=== PATIENT | female | born 1965 | race Caucasian/White ===

== ENCOUNTER → 2018-04-29 | Day surgery (SDC) | payer OTHER ==
[2018-04-23 15:35] LABS: BASOPHILS % 0.6 % (0.0-1.0); EOSINOPHILS # (AUTO) 0.1 (0.0-0.4); EOSINOPHILS % 1.9 % (0.0-6.0); HEMATOCRIT 41.9 % (34.2-44.1); HEMOGLOBIN 14.4 g/dL (12.0-16.0); LYMPHOCYTES # (AUTO) 2.6 (1.0-3.2); LYMPHOCYTES % 47.3 % (18.0-39.1); MEAN CORPUSCULAR HEMOGLOBIN 29.7 pg (28-32); MEAN CORPUSCULAR HGB CONC 34.4 g/dL (31-35); MEAN CORPUSCULAR VOLUME 86.4 fL (81-99); MONOCYTES # (AUTO) 0.4 (0.2-0.8); MONOCYTES % 6.7 % (4.4-11.3); NEUTROPHILS # (AUTO) 2.3 (2.1-6.9); NEUTROPHILS % 43.3 % (38.7-80.0); PLATELET COUNT 278 x10e3/uL (140-360); RED BLOOD COUNT 4.85 x10e6/uL (3.6-5.1); RED CELL DISTRIBUTION WIDTH 14.1 % (11.7-14.4)
[2018-04-23 15:55] LABS: BLOOD UREA NITROGEN 13 mg/dL (7-26); BUN/CREATININE RATIO 18 (6-25); CALCIUM 9.7 mg/dL (8.4-10.2); CARBON DIOXIDE 26 mmol/L (22-29); CHLORIDE 104 mmol/L (98-107); CREATININE, SERUM 0.71 mg/dL (0.57-1.11); EST GLOMERULAR FILTRATION RATE > 60 ML/MIN (60-); GLUCOSE 92 mg/dL (74-118); SODIUM 138 mmol/L (136-145)
--- NOTE | 2018-04-23 16:29 | Diagnostic Imaging Report ---
EXAMINATION: CHEST 2 VIEWS INDICATION: ^PRE ADMIT ^[id number] ^[id number] COMPARISON: None FINDINGS: PA and lateral views TUBES and LINES: None. LUNGS: Lungs are well inflated. Lungs are clear. There is no evidence of pneumonia or pulmonary edema. PLEURA: No pleural effusion or pneumothorax. HEART AND MEDIASTINUM: The cardiomediastinal silhouette is unremarkable. BONES AND SOFT TISSUES: No acute osseous lesion. Soft tissues are unremarkable. UPPER ABDOMEN: No free air under the diaphragm. IMPRESSION: No acute thoracic abnormality. Signed by: Dr. Guy Rolon MD on 04/23/2018 4:26 PM
[~2018-04-29] MED LIST: BETAMETHASONE DISODIUM PHOS 6 MG/ML VIAL ONE; BUPIVACAINE HCL 0.5% INJ 30 ML VIAL INJ ONE; CEFAZOLIN SOD 2 GM/D5W 50ML 50 ML IV ONE; DEXAMETHASONE SOD PHOS INJ 4 MG/ML VIAL ONE; FENTANYL CITRATE/PF 100MCG/2 ML INJ ONE; KEFLEX PO; KETOROLAC TROMETHAMINE 30 MG/ML VIAL ONE; LIDOCAINE HCL 1% LOCAL INJ 20 ML VIAL ONE; LIDOCAINE HCL 2% LOCAL INJ 5 ML SDV VIAL INJ ONE; MIDAZOLAM HCL 2 MG/2 ML VIAL ONE; MONTELUKAST SOD10 MG PO; MORPHINE SULFATE 2 MG/ML SYR ONE; MUPIROCIN 2% OINT 22 GM TUBE ONE; ONDANSETRON HCL INJ 2 MG/ML VIAL ONE; PROPOFOL IV EMULSION 10 MG/ML 20 ML VIAL ONE; SEVOFLURANE INHAL SOLN 250 ML PEN BTL ONE
--- OUTSIDE RECORDS SUMMARY | 2018-04-29 06:00 | XMS REPORT | Continuity of Care Document ---
Author Author [facility] Interface Address Unknown Phone Unavailable Problems Problem Status Onset Date Classification Date Reported Comments Source DR TAMAYO Active 06/05/2016 [facility] TIA Active 06/05/2016 [facility] Asthma Resolved Problem 06/09/2016 [facility] TRANSIENT CEREBRAL ISCHEMIC ATTACK, UNSP Active [facility] Medications Medication Details Route Status Patient Instructions Ordering Provider Order Date Source Lipitor 80 mg, 2 tab, Route: PO, Drug form: TAB, Bedtime, Dosing Weight 63.636, kg, Start date: 06/06/16 21:00:00 [employer], Duration: 30 day, Stop date: 07/05/16 21:00:00 CSTNotes: (Same as: Lipitor) Inactive 06/07/2016 [facility] atorvastatin 40 mg oral tablet 80 mg=2 tab, PO, Bedtime, # 30 tab, 0 Refill(s) Active 06/06/2016 [facility] dipyridamole 25 mg oral tablet 50 mg=2 tab, PO, Daily, # 30 tab, 0 Refill(s) Active 06/06/2016 [facility] Persantine 50 mg, 2 tab, Route: PO, Drug form: TAB, Daily, Dosing Weight 81.818, kg, Start date: 06/06/16 9:04:00 [employer], Duration: 30 day, Stop date: 07/06/16 9:00:00 [employer] Inactive 06/06/2016 [facility] Pentoxifylline 400 mg, 1 tab, Route: PO, Drug form: ERTAB, TID, Dosing Weight 81.818, kg, Start date: 06/06/16 9:03:00 [employer], Duration: 30 day, Stop date: 07/06/16 9:00:00 [employer] Inactive 06/06/2016 [facility] Aspirin 325 mg, 1 tab, Route: PO, Drug form: TAB, Daily, Dosing Weight 63.636, kg, Start date: 06/06/16 9:00:00 [employer], Duration: 30 day, Stop date: 07/05/16 9:00:00 CSTNotes: Take with food. Inactive 06/06/2016 [facility] pneumococcal capsular polysaccharide type 1 vaccine / pneumococcal capsular polysaccharide type 10A vaccine / pneumococcal capsular polysaccharide type 11A vaccine / pneumococcal capsular polysaccharide type 12F vaccine / pneumococcal capsular polysacchar 0.5 mL, Route: IM, Drug Form: INJ, Daily, Start date: 06/06/16 9:00:00 [employer], Stop date: 06/06/16 11:00:00 CSTNotes: (Same as: Pneumovax 23) Refrigerate Inactive 06/06/2016 [facility] Saline Flush 0.9% 10 ml, Route: IVP, Drug Form: INJ, Dosing Weight 81.818, kg, Q12H, Start date: 06/06/16 9:00:00 [employer], Duration: 30 day, Stop date: 07/05/16 21:00:00 CSTNotes: (Same as: BD Posiflush) Inactive 06/06/2016 [facility] Famotidine 20 mg, 1 tab, Route: PO, Drug form: TAB, Q12H, Dosing Weight 81.818, kg, Start date: 06/06/16 9:00:00 [employer], Duration: 30 day, Stop date: 07/05/16 21:00:00 CSTNotes: (Same as: Pepcid) Inactive 06/06/2016 [facility] nitroglycerin 0.4 mg sublingual tablet 0.4 mg, 1 tab, Route: SL, Drug form: TAB, Q5Min, PRN Chest Pain, Start date: 06/06/16 4:04:00 [employer], Duration: 30 day, Stop date: 07/06/16 4:03:00 CSTNotes: (Same as:Nitroquick, Nitrostat) "Do Not Crush" Sublingual tablet Inactive 06/06/2016 [facility] atropine 0.5 mg, 5 mL, Route: IVP, Drug form: INJ, PRN, PRN Bradycardia, Start date: 06/06/16 4:04:00 [employer], Duration: 30 day, Stop date: 07/06/16 4:03:00 [employer] Inactive 06/06/2016 [facility] montelukast Daily, 0 Refill(s) Active 06/06/2016 [facility] Saline Flush 0.9% 10 ml, Route: IVP, Drug Form: INJ, Dosing Weight 81.818, kg, PRN, PRN Line Flush, Start date: 06/06/16 2:38:00 [employer], Duration: 30 day, Stop date: 07/06/16 2:37:00 CSTNotes: (Same as: BD Posiflush) Inactive 06/06/2016 [facility] Acetaminophen 650 mg, 2 tab, Route: PO, Drug form: TAB, Q4H, Dosing Weight 81.818, kg, PRN Pain 1-3/Temp > 99.5 F, Start date: 06/06/16 2:38:00 [employer], Duration: 30 day, Stop date: 07/06/16 2:37:00 CSTNotes: Do not e xceed 4 gm/day. (Same as: Tylenol) Inactive 06/06/2016 [facility] Atenolol 25 MG Oral Tablet 25 mg=1 tab, PO, Daily, 0.5 mg in am and pm, 0 Refill(s) Inactive 06/06/2016 [facility] Sodium Chloride 0.154 MEQ/ML Injectable Solution 1,000 mL, Rate: 75 ml/hr, Infuse over: 13.3 hr, Route: IV, Dosing Weight 63.636 kg, Total Volume: 1,000, Start date: 06/05/16 22:46:00 [employer], Duration: 30 day, Stop date: 07/05/16 22:45:00 [employer] No Longer Active 06/06/2016 [facility] Saline Flush 0.9% 10 ml, Route: IVP, Drug Form: INJ, Dosing Weight 63.636, kg, PRN, PRN Line Flush, Start date: 06/05/16 22:46:00 [employer], Duration: 30 day, Stop date: 07/05/16 22:45:00 [employer] Inactive 06/06/2016 [facility] Ondansetron 4 mg, 2 mL, Route: IVP, Drug form: INJ, Q6H, Dosing Weight 63.636, kg, PRN Nausea & Vomiting, Start date: 06/05/16 22:46:00 [employer], Duration: 30 day, Stop date: 07/05/16 22:45:00 CSTNotes: (Same as: Zofran) MEDICATION WASTE Product Size: 4 mg Product Wasted: ___ mg No Longer Active 06/06/2016 [facility] Aspirin 324 mg, 4 tab, Route: CHEW, Drug form: CHEWTAB, ONCE, Dosing Weight 63.636, kg, Priority: STAT, Start date: 06/05/16 21:24:00 [employer], Stop date: 06/05/16 21:24:00 CSTNotes: Take with food. Inactive 06/06/2016 [facility] Saline Flush 0.9% 10 mL, Route: IVP, Drug Form: INJ, kg, PRN, PRN Line Flush, Start date: 06/05/16 17:03:00 [employer], Duration: 30 day, Stop date: 07/05/16 17:02:00 CSTNotes: (Same as: BD Posiflush) No Longer Active 06/05/2016 [facility] Allergies, Adverse Reactions, Alerts Substance Category Reaction Severity Reaction type Status Date Reported Comments Source Immunizations Immunization Date Given Site Status Last Updated Comments Source pneumococcal 23-valent vaccine 06/06/2016 Left deltoid completed [facility] Results Order Name Results Value Reference Range Date Interpretation Comments Source CARDIAC ENZYMES Troponin-I null 0.00 - 0.40 06/06/2016 [facility] CHEM PANEL eGFR 102 mL/min/1.73m2 06/06/2016 Result Comment: The eGFR is calculated using the CKD-EPI formula. In most young, healthy individuals the eGFR will be >90 mL/min/1.73m2. The eGFR declines with age. An eGFR of 60-89 may be normal in some populations, particularly the elderly, for whom the CKD-EPI formula has not been extensively validated. Use of the eGFR is not recommended in the following populations: Individuals with unstable creatinine concentrations, including patients and those with serious co-morbid conditions. Patients with extremes in muscle mass or diet. The data above are obtained from the National Kidney Disease Education Program (NKDEP) which additionally recommends that when the eGFR is used in patients with extremes of body mass index for purposes of drug dosing, the eGFR should be multiplied by the estimated BMI. [facility] CHEM PANEL BUN 18 mg/dL 7 - 22 06/06/2016 [facility] CHEM PANEL AGAP 13.9 meq/L 10.0 - 20.0 06/06/2016 [facility] CHEM PANEL CO2 23 meq/L 24 - 32 06/06/2016 [facility] CHEM PANEL Glucose Lvl 90 mg/dL 70 - 99 06/06/2016 [facility] CHEM PANEL Creatinine Lvl 0.65 mg/dL 0.50 - 1.40 06/06/2016 [facility] CHEM PANEL Chloride Lvl 110 meq/L 95 - 109 06/06/2016 [facility] CHEM PANEL AST 23 unit/L 0 - 37 06/06/2016 [facility] CHEM PANEL Bili Total 0.3 mg/dL 0.2 - 1.3 06/06/2016 [facility] CHEM PANEL Alk Phos 83 unit/L 39 - 136 06/06/2016 [facility] CHEM PANEL Total Protein 6.4 g/dL 6.4 - 8.4 06/06/2016 [facility] CHEM PANEL B/C Ratio 28 6 - 25 06/06/2016 [facility] CHEM PANEL Calcium Lvl 8.5 mg/dL 8.5 - 10.5 06/06/2016 [facility] CHEM PANEL Albumin Lvl 3.4 g/dL 3.5 - 5.0 06/06/2016 [facility] CHEM PANEL ALT 34 unit/L 0 - 65 06/06/2016 [facility] CHEM PANEL A/G Ratio 1.1 0.7 - 1.6 06/06/2016 [facility] CHEM PANEL Globulin 3.0 g/dL 2.7 - 4.2 06/06/2016 [facility] CHEM PANEL Potassium Lvl 3.9 meq/L 3.5 - 5.1 06/06/2016 [facility] CHEM PANEL Sodium Lvl 143 meq/L 135 - 145 06/06/2016 [facility] HEMATOLOGY WBC 5.2 K/CMM 3.7 - 10.4 06/06/2016 [facility] HEMATOLOGY Hgb 13.9 g/dL 12.0 - 16.0 06/06/2016 [facility] HEMATOLOGY RBC 4.76 M/CMM 4.20 - 5.40 06/06/2016 [facility] HEMATOLOGY Hct 40.6 % 36.0 - 48.0 06/06/2016 [facility] HEMATOLOGY MCV 85.4 fL 80.0 - 98.0 06/06/2016 [facility] HEMATOLOGY MCH 29.2 pg 27.0 - 31.0 06/06/2016 [facility] MCHC 34.1 g/dL 32.0 - 36.0 06/06/2016 [facility] HEMATOLOGY RDW 14.4 % 11.5 - 14.5 06/06/2016 [facility] HEMATOLOGY Platelet 241 K/CMM 133 - 450 06/06/2016 [facility] MPV 8.2 fL 7.4 - 10.4 06/06/2016 [facility] HEMATOLOGY Segs-Bands # 2.1 K/CMM 1.5 - 8.1 06/06/2016 [facility] HEMATOLOGY Basophils 0.7 % 0.0 - 1.0 06/06/2016 [facility] HEMATOLOGY Lymphocytes # 2.5 K/CMM 1.0 - 5.5 06/06/2016 [facility] HEMATOLOGY Monocytes # 0.4 K/CMM 0.0 - 0.8 06/06/2016 [facility] Eosinophils # 0.1 K/CMM 0.0 - 0.5 06/06/2016 [facility] HEMATOLOGY Segs 40.6 % 45.0 - 75.0 06/06/2016 [facility] Lymphocytes 48.5 % 20.0 - 40.0 06/06/2016 [facility] Monocytes 7.9 % 2.0 - 12.0 06/06/2016 [facility] Eosinophils 2.3 % 0.0 - 4.0 06/06/2016 [facility] LIPIDS Chol 164 mg/dL <=199 mg/dL 06/06/2016 [facility] LIPIDS Trig 138 mg/dL <=149 mg/dL 06/06/2016 [facility] LIPIDS VLDL 28 06/06/2016 [facility] LIPIDS LDL (Calculated) 89 mg/dL <=99 mg/dL 06/06/2016 [facility] LIPIDS HDL 47 mg/dL >=61 mg/dL 06/06/2016 [facility] LIPIDS CHD Risk 3.49 3.90 - 5.80 06/06/2016 [facility] SPECIAL CHEMISTRY Hgb A1C 5.5 % <=5.6 % 06/06/2016 [facility] Carotid artery Doppler bilat US Carotid artery Doppler bilat US Carotid artery Doppler bilat US CLINICAL HISTORY: Acute Cerebral Accident. COMPARISON: none TECHNIQUE: Clemente scale, color Doppler and spectral Doppler of the cervical carotid arteries was performed. Static images are submitted for review. FINDINGS: RIGHT: There is no significant intimal thickening or plaque visualized in right CCA. Visualized portion of right ECA is patent. No significant plaque is visualized in the right carotid bulb. Visualized portion of the right ICA is patent without significant plaque. Right ICA PSV 91 cm/sec. Right CCA PSV 90 cm/sec. Right ICA/CCA Ratio 1.0 LEFT: There is no significant intimal thickening or plaque visualized in left CCA. Visualized portion of left ECA is patent. No significant plaque is visualized in the left carotid bulb. Visualized portion of the left ICA is patent without significant plaque. Left ICA PSV 104 cm/sec. Left CCA PSV 112 cm/sec. Left ICA/CCA Ratio 0.9 Antegrade flow is noted in both vertebral arteries. IMPRESSION: No sonographic evidence for hemodynamically significant stenosis. CONSENSUS PANEL Doppler US criteria for diagnosis of ICA stenosis: Stenosis (%) ICA PSV (cm/sec) ICA EDV(cm/sec) ICA/CCA ratio <50 % <125 <40 <2.0 50-69 % 125-230 40-100 2.0-4.0 >70% but less than >230 >100 >4.0 near occlusion NOTE: Any reported ICA stenoses indirectly reference the distal internal carotid diameter as the denominator for stenosis measurement utilizing Consensus Panel Criteria. SL: [id number] Doppler 06/06/2016 - - Read by: Juancarlos Macdonald MD Dictated Date/time: 06/06/16 11:52 Electronically Signed by: Juancarlos Macdonald MD 06/06/16 12:21 FINAL REPORT [facility] CARDIAC ENZYMES Troponin-I null 0.00 - 0.40 06/06/2016 [facility] Brain wo contrast MRI Brain wo contrast MRI Study: Brain wo contrast MRI 06/05/2016 10:39 PM [employer]IST Ordering Physician: Oly Barba MD Clinical Indication: Blurry vision; slurred speech. Comparison: None Magnetic resonance imaging of the brain without contrast TECHNIQUE: Multiplanar, multiecho magnetic resonance imaging of the brain is performed without contrast on a high-field strength magnet. No foci of abnormal signal intensity are identified within the cerebral or cerebellar hemispheres. There is no evidence for intracranial mass, mass effect or extra-axial fluid collection. No subacute or chronic blood products are seen. 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 These form a conglomerate measuring approximately 10 mm AP by 8 mm TR by 5 mm CC. No solid or nodular components are visualized. There is no evidence for acute ischemia on diffusion-weighted images. Ventricles, sulci and basal cisterns are within normal limits for age. Normal flow voids are present in the arterial vessels at the skull base. Flow voids in the dural venous sinuses are normal. The pituitary, internal auditory canals and visualized cranial nerves at the skull base are unremarkable. Paranasal sinuses are clear. Minimal inferior left mastoid air cell opacification is present.. Orbital structures are grossly unremarkable. IMPRESSION: There is minimal inferior left mastoid air cell opacification. MRI of the brain without contrast is otherwise unremarkable. SL: [id number] 06/06/2016 - - Read by: Patrica Alberto MD Dictated Date/time: 06/06/16 01:17 Electronically Signed by: Patrica Alberto MD 06/06/16 01:28 FINAL REPORT [facility] URINE AND STOOL UA Color Ltyellow 06/06/2016 [facility] URINE AND STOOL UA Urobilinogen <=1.0 mg/dL 0.1 - 1.0 06/06/2016 [facility] URINE AND STOOL UA Mucus Few /LPF None Seen /LPF 06/06/2016 [facility] URINE AND STOOL UA Renal Epi 1 /LPF <=0 /LPF 06/06/2016 [facility] URINE AND STOOL UA WBC 1 /HPF 0 - 5 06/06/2016 [facility] URINE AND STOOL UA RBC 1 /HPF 0 - 2 06/06/2016 [facility] URINE AND STOOL UA Sq Epi Few /LPF Few /LPF 06/06/2016 [facility] URINE AND STOOL UA Leuk Est Moderate *ABN* (06/05/16 6:26 PM) Negative 06/06/2016 [facility] URINE AND STOOL UA Blood Negative (06/05/16 6:26 PM) Negative 06/06/2016 [facility] URINE AND STOOL UA Nitrite Negative (06/05/16 6:26 PM) Negative 06/06/2016 [facility] URINE AND STOOL UA Ketones Negative mg/dL Negative mg/dL 06/06/2016 [facility] URINE AND STOOL UA Glucose Negative mg/dL Negative mg/dL 06/06/2016 [facility] URINE AND STOOL UA Bili Negative *NA* (06/05/16 6:26 PM) Negative 06/06/2016 [facility] URINE AND STOOL UA pH 6.0 5.0 - 8.0 06/06/2016 [facility] URINE AND STOOL UA Protein Negative mg/dL Negative mg/dL 06/06/2016 [facility] URINE AND STOOL UA Turbidity Clear (06/05/16 6:26 PM) Clear 06/06/2016 [facility] URINE AND STOOL UA Spec Grav 1.013 <=1.030 06/06/2016 [facility] CARDIAC ENZYMES Total CK 56 unit/L 12 - 191 06/05/2016 [facility] CARDIAC ENZYMES Troponin-I null 0.00 - 0.40 06/05/2016 [facility] CARDIAC ENZYMES CK MB null 0.5 - 3.6 06/05/2016 [facility] CARDIAC ENZYMES CK MB Index null 0.0 - 2.5 06/05/2016 [facility] CHEM PANEL eGFR 93 mL/min/1.73m2 06/05/2016 Result Comment: The eGFR is calculated using the CKD-EPI formula. In most young, healthy individuals the eGFR will be >90 mL/min/1.73m2. The eGFR declines with age. An eGFR of 60-89 may be normal in some populations, particularly the elderly, for whom the CKD-EPI formula has not been extensively validated. Use of the eGFR is not recommended in the following populations: Individuals with unstable creatinine concentrations, including patients and those with serious co-morbid conditions. Patients with extremes in muscle mass or diet. The data above are obtained from the National Kidney Disease Education Program (NKDEP) which additionally recommends that when the eGFR is used in patients with extremes of body mass index for purposes of drug dosing, the eGFR should be multiplied by the estimated BMI. [facility] CHEM PANEL B/C Ratio 16 6 - 25 06/05/2016 [facility] CHEM PANEL Globulin 3.5 g/dL 2.7 - 4.2 06/05/2016 [facility] CHEM PANEL A/G Ratio 1.0 0.7 - 1.6 06/05/2016 [facility] CHEM PANEL Alk Phos 91 unit/L 39 - 136 06/05/2016 [facility] CHEM PANEL ALT 37 unit/L 0 - 65 06/05/2016 [facility] CHEM PANEL Bili Total 0.3 mg/dL 0.2 - 1.3 06/05/2016 [facility] CHEM PANEL AST 21 unit/L 0 - 37 06/05/2016 [facility] CHEM PANEL AGAP 15.2 meq/L 10.0 - 20.0 06/05/2016 [facility] CHEM PANEL Potassium Lvl 4.2 meq/L 3.5 - 5.1 06/05/2016 [facility] CHEM PANEL BUN 12 mg/dL 7 - 22 06/05/2016 [facility] CHEM PANEL Sodium Lvl 143 meq/L 135 - 145 06/05/2016 [facility] CHEM PANEL Glucose Lvl 131 mg/dL 70 - 99 06/05/2016 [facility] CHEM PANEL Creatinine Lvl 0.74 mg/dL 0.50 - 1.40 06/05/2016 [facility] CHEM PANEL Total Protein 7.1 g/dL 6.4 - 8.4 06/05/2016 [facility] CHEM PANEL Calcium Lvl 8.8 mg/dL 8.5 - 10.5 06/05/2016 [facility] CHEM PANEL Albumin Lvl 3.6 g/dL 3.5 - 5.0 06/05/2016 [facility] CHEM PANEL Chloride Lvl 107 meq/L 95 - 109 06/05/2016 [facility] CHEM PANEL CO2 25 meq/L 24 - 32 06/05/2016 [facility] HEMATOLOGY MPV 8.5 fL 7.4 - 10.4 06/05/2016 [facility] HEMATOLOGY RDW 14.6 % 11.5 - 14.5 06/05/2016 [facility] HEMATOLOGY Platelet 273 K/CMM 133 - 450 06/05/2016 [facility] HEMATOLOGY RBC 5.14 M/CMM 4.20 - 5.40 06/05/2016 [facility] HEMATOLOGY MCV 86.2 fL 80.0 - 98.0 06/05/2016 [facility] HEMATOLOGY MCH 29.3 pg 27.0 - 31.0 06/05/2016 [facility] HEMATOLOGY MCHC 33.9 g/dL 32.0 - 36.0 06/05/2016 [facility] HEMATOLOGY WBC 5.0 K/CMM 3.7 - 10.4 06/05/2016 [facility] HEMATOLOGY Hgb 15.0 g/dL 12.0 - 16.0 06/05/2016 [facility] HEMATOLOGY Hct 44.3 % 36.0 - 48.0 06/05/2016 [facility] HEMATOLOGY INR 0.90 0.85 - 1.17 06/05/2016 [facility] HEMATOLOGY PT 12.3 s 12.0 - 14.7 06/05/2016 [facility] HEMATOLOGY PTT 26.6 s 22.9 - 35.8 06/05/2016 [facility] HEMATOLOGY Monocytes # 0.3 K/CMM 0.0 - 0.8 06/05/2016 [facility] HEMATOLOGY Lymphocytes # 2.2 K/CMM 1.0 - 5.5 06/05/2016 [facility] HEMATOLOGY Basophils 0.8 % 0.0 - 1.0 06/05/2016 [facility] HEMATOLOGY Segs-Bands # 2.4 K/CMM 1.5 - 8.1 06/05/2016 [facility] HEMATOLOGY Eosinophils # 0.1 K/CMM 0.0 - 0.5 06/05/2016 [facility] HEMATOLOGY Segs 47.5 % 45.0 - 75.0 06/05/2016 [facility] HEMATOLOGY Lymphocytes 43.1 % 20.0 - 40.0 06/05/2016 [facility] HEMATOLOGY Monocytes 6.3 % 2.0 - 12.0 06/05/2016 [facility] HEMATOLOGY Eosinophils 2.3 % 0.0 - 4.0 06/05/2016 [facility] Vital Signs Vital Sign Value Date Comments Source Systolic (mm Hg) 92 06/06/2016 [facility] Diastolic (mm Hg) 40 06/06/2016 [facility] Heart Rate 81 06/06/2016 [facility] Temperature Oral (F) 98.0 F 06/06/2016 [facility] Respitory Rate 16 06/06/2016 [facility] Systolic (mm Hg) 112 06/06/2016 [facility] Diastolic (mm Hg) 66 06/06/2016 [facility] Respitory Rate 16 06/06/2016 [facility] Heart Rate 87 06/06/2016 [facility] Temperature Oral (F) 98.2 F 06/06/2016 [facility] Temperature Oral (F) 98.2 F 06/06/2016 [facility] Heart Rate 68 06/06/2016 [facility] Respitory Rate 16 06/06/2016 [facility] Systolic (mm Hg) 100 06/06/2016 [facility] Diastolic (mm Hg) 68 06/06/2016 [facility] Weight 81.818 06/06/2016 [facility] BMI Calculated 34.08 06/06/2016 [facility] Height 154.94 cm 06/06/2016 [facility] Weight 63.636 06/05/2016 [facility] Height 172.72 cm 06/05/2016 [facility] BMI Calculated 21.33 06/05/2016 [facility] Encounters Location Location Details Encounter Type Encounter Number Reason For Visit Attending Provider ADM Date DC Date Status Source [facility] Observation [id number] Fernando Jefferson Jr 06/05/2016 06/06/2016 [facility] Procedures Procedure Code Date Perfomer Comments Source Abdominal hysterectomy [id number] [facility] Caesarean section [id number] [facility] Cardiac catheterisation [id number] [facility]
--- OUTSIDE RECORDS SUMMARY | 2018-04-29 06:01 | XMS REPORT | Summary of Care ---
Author Author [facility] Organization [facility] Address Unknown Phone Unavailable Encounter HQ Jhoana(ADAN) [id number] Date(s): 06/05/16 - 06/06/16 [facility] [address] [place] [address]- Discharge Disposition: Home or Self Care Attending Physician: Fernando Morillo MD Admitting Physician: Fernando Morillo MD Vital Signs 1 2 3 Most recent to oldest [Reference Range]: 154.94 cm (06/06/16 2:16 AM) 172.72 cm (06/05/16 5:01 PM) Height 98.0 DegF (06/06/16 3:46 PM) 98.2 DegF (06/06/16 11:44 AM) 98.2 DegF (06/06/16 7:05 AM) Temperature Oral [96.4-99.1 DegF] 92/40 mmHg (06/06/16 3:46 PM) 112/66 mmHg (06/06/16 11:44 AM) 100/68 mmHg (06/06/16 7:05 AM) Blood Pressure [90-140/60-90 mmHg] 16 BRMIN (06/06/16 3:46 PM) 16 BRMIN (06/06/16 11:44 AM) 16 BRMIN (06/06/16 7:05 AM) Respiratory Rate [14-20 BRMIN] 81 bpm (06/06/16 3:46 PM) 87 bpm (06/06/16 11:44 AM) 68 bpm (06/06/16 7:05 AM) Peripheral Pulse Rate [60-100 bpm] 81.818 kg (06/06/16 2:16 AM) 63.636 kg (06/05/16 5:01 PM) Weight 34.08 m2 (06/06/16 2:16 AM) 21.33 m2 (06/05/16 5:01 PM) Body Mass Index Problem List Condition Effective Dates Status Health Status Informant Asthma(Confirmed) Resolved Allergies, Adverse Reactions, Alerts Substance Reaction Severity Status NKDA Active Medications acetaminophen 650 mg, 2 tab, Route: PO, Drug form: TAB, Q4H, Dosing Weight 81.818, kg, PRN Esau n 1-3/Temp > 99.5 F, Start date: 06/06/16 2:38:00 PROMOTIONS SPECIALIST, Duration: 30 day, Stop date: 07/06/16 2:37:00 PROMOTIONS SPECIALIST Notes: Do not exceed 4 gm/day. (Same as: Tylenol) Start Date: 06/06/16 Stop Date: 06/06/16 Status: Discontinued aspirin 325 mg, 1 tab, Route: PO, Drug form: TAB, Daily, Dosing Weight 63.636, kg, Start date: 06/06/16 9:00:00 PROMOTIONS SPECIALIST, Duration: 30 day, Stop date: 07/05/16 9:00:00 PROMOTIONS SPECIALIST Notes: Take with food. Start Date: 06/06/16 Stop Date: 06/06/16 Status: Canceled aspirin 324 mg, 4 tab, Route: CHEW, Drug form: CHEWTAB, ONCE, Dosing Weight 63.636, kg, Priority: STAT, Start date: 06/05/16 21:24:00 PROMOTIONS SPECIALIST, Stop date: 06/05/16 21:24:00 PROMOTIONS SPECIALIST Notes: Take with food. Start Date: 06/05/16 Stop Date: 06/05/16 Status: Completed atenolol 25 mg oral tablet 25 mg=1 tab, PO, Daily, 0.5 mg in am and pm, 0 Refill(s) Start Date: 06/06/16 Stop Date: 06/06/16 Status: Discontinued atorvastatin 40 mg oral tablet 80 mg=2 tab, PO, Bedtime, # 30 tab, 0 Refill(s) Start Date: 06/06/16 Status: Ordered atropine 0.5 mg, 5 mL, Route: IVP, Drug form: INJ, PRN, PRN Bradycardia, Start date: 05/26 07/12 4:04:00 PROMOTIONS SPECIALIST, Duration: 30 day, Stop date: 07/06/16 4:03:00 PROMOTIONS SPECIALIST Start Date: 06/06/16 Stop Date: 06/06/16 Status: Discontinued dipyridamole 25 mg oral tablet 50 mg=2 tab, PO, Daily, # 30 tab, 0 Refill(s) Start Date: 06/06/16 Status: Ordered famotidine 20 mg, 1 tab, Route: PO, Drug form: TAB, Q12H, Dosing Weight 81.818, kg, Start d ate: 06/06/16 9:00:00 PROMOTIONS SPECIALIST, Duration: 30 day, Stop date: 07/05/16 21:00:00 PROMOTIONS SPECIALIST Notes: (Same as: Pepcid) Start Date: 06/06/16 Stop Date: 06/06/16 Status: Discontinued Lipitor 80 mg, 2 tab, Route: PO, Drug form: TAB, Bedtime, Dosing Weight 63.636, kg, Star t date: 06/06/16 21:00:00 PROMOTIONS SPECIALIST, Duration: 30 day, Stop date: 07/05/16 21:00:00 CS T Notes: (Same as: Lipitor) Start Date: 06/06/16 Stop Date: 06/06/16 Status: Canceled montelukast Daily, 0 Refill(s) Start Date: 06/06/16 Status: Ordered nitroglycerin 0.4 mg sublingual tablet 0.4 mg, 1 tab, Route: SL, Drug form: TAB, Q5Min, PRN Chest Pain, Start date: 05/11 4:04:00 PROMOTIONS SPECIALIST, Duration: 30 day, Stop date: 07/06/16 4:03:00 PROMOTIONS SPECIALIST Notes: (Same as:Nitroquick, Nitrostat)"Do Not Crush" Sublingual tablet Start Date: 06/06/16 Stop Date: 06/06/16 Status: Discontinued ondansetron 4 mg, 2 mL, Route: IVP, Drug form: INJ, Q6H, Dosing Weight 63.636, kg, PRN Nause a & Vomiting, Start date: 06/05/16 22:46:00 PROMOTIONS SPECIALIST, Duration: 30 day, Stop date: 07/05/16 22:45:00 PROMOTIONS SPECIALIST Notes: (Same as: Tobias) MEDICATION WASTE Product Size: 4 mgProduct Was sylvia: ___ mg Start Date: 06/05/16 Stop Date: 06/06/16 Status: Discontinued pentoxifylline 400 mg, 1 tab, Route: PO, Drug form: ERTAB, TID, Dosing Weight 81.818, kg, Start date: 06/06/16 9:03:00 PROMOTIONS SPECIALIST, Duration: 30 day, Stop date: 07/06/16 9:00:00 PROMOTIONS SPECIALIST Start Date: 06/06/16 Stop Date: 06/06/16 Status: Discontinued Persantine 50 mg, 2 tab, Route: PO, Drug form: TAB, Daily, Dosing Weight 81.818, kg, Start date: 06/06/16 9:04:00 PROMOTIONS SPECIALIST, Duration: 30 day, Stop date: 07/06/16 9:00:00 PROMOTIONS SPECIALIST Start Date: 06/06/16 Stop Date: 06/06/16 Status: Discontinued pneumococcal 23-valent vaccine 0.5 mL, Route: IM, Drug Form: INJ, Daily, Start date: 06/06/16 9:00:00 PROMOTIONS SPECIALIST, Stop date: 06/06/16 11:00:00 PROMOTIONS SPECIALIST Notes: (Same as: Pneumovax 23) Refrigerate Start Date: 06/06/16 Stop Date: 06/06/16 Status: Deleted Saline Flush 0.9% 10 ml, Route: IVP, Drug Form: INJ, Dosing Weight 63.636, kg, PRN, PRN Line Flush , Start date: 06/05/16 22:46:00 PROMOTIONS SPECIALIST, Duration: 30 day, Stop date: 07/05/16 22:45 :00 PROMOTIONS SPECIALIST Start Date: 06/05/16 Stop Date: 06/05/16 Status: Deleted Saline Flush 0.9% 10 mL, Route: IVP, Drug Form: INJ, kg, PRN, PRN Line Flush, Start date: 06/05/16 17:03:00 PROMOTIONS SPECIALIST, Duration: 30 day, Stop date: 07/05/16 17:02:00 PROMOTIONS SPECIALIST Notes: (Same as: BD Posiflush) Start Date: 06/05/16 Stop Date: 06/06/16 Status: Discontinued Saline Flush 0.9% 10 ml, Route: IVP, Drug Form: INJ, Dosing Weight 81.818, kg, PRN, PRN Line Flush , Start date: 06/06/16 2:38:00 PROMOTIONS SPECIALIST, Duration: 30 day, Stop date: 07/06/16 2:37:0 0 PROMOTIONS SPECIALIST Notes: (Same as: BD Posiflush) Start Date: 06/06/16 Stop Date: 06/06/16 Status: Discontinued Saline Flush 0.9% 10 ml, Route: IVP, Drug Form: INJ, Dosing Weight 81.818, kg, Q12H, Start date: 0 06/06/16 9:00:00 PROMOTIONS SPECIALIST, Duration: 30 day, Stop date: 07/05/16 21:00:00 PROMOTIONS SPECIALIST Notes: (Same as: BD Posiflush) Start Date: 06/06/16 Stop Date: 06/06/16 Status: Discontinued sodium chloride 0.9% 1000 ml INJ 1,000 mL 1,000 mL, Rate: 75 ml/hr, Infuse over: 13.3 hr, Route: IV, Dosing Weight 63.636 kg, Total Volume: 1,000, Start date: 06/05/16 22:46:00 PROMOTIONS SPECIALIST, Duration: 30 day, St op date: 07/05/16 22:45:00 PROMOTIONS SPECIALIST Start Date: 06/05/16 Stop Date: 06/06/16 Status: Discontinued Results ELECTROLYTES 1 2 3 Most recent to oldest [Reference Range]: 143 mEq/L (06/06/16 5:26 AM) 143 mEq/L (06/05/16 5:45 PM) Sodium Lvl [135-145 mEq/L] 3.9 mEq/L (06/06/16 5:26 AM) 4.2 mEq/L (06/05/16 5:45 PM) Potassium Lvl [3.5-5.1 mEq/L] 110 mEq/L *HI* (06/06/16 5:26 AM) 107 mEq/L (06/05/16 5:45 PM) Chloride Lvl [95-109 mEq/L] 23 mEq/L *LOW* (06/06/16 5:26 AM) 25 mEq/L (06/05/16 5:45 PM) CO2 [24-32 mEq/L] 13.9 mEq/L (06/06/16 5:26 AM) 15.2 mEq/L (06/05/16 5:45 PM) AGAP [10.0-20.0 mEq/L] CHEM PANEL 1 2 3 Most recent to oldest [Reference Range]: 0.65 mg/dL (06/06/16 5:26 AM) 0.74 mg/dL (06/05/16 5:45 PM) Creatinine Lvl [0.50-1.40 mg/dL] 102 mL/min/1.73m2 1 *NA* (06/06/16 5:26 AM) 93 mL/min/1.73m2 2 *NA* (06/05/16 5:45 PM) eGFR 18 mg/dL (06/06/16 5:26 AM) 12 mg/dL (06/05/16 5:45 PM) BUN [7-22 mg/dL] 28 *HI* (06/06/16 5:26 AM) 16 (06/05/16 5:45 PM) B/C Ratio [6-25] 90 mg/dL (06/06/16 5:26 AM) 131 mg/dL *HI* (06/05/16 5:45 PM) Glucose Lvl [70-99 mg/dL] 6.4 g/dL (06/06/16 5:26 AM) 7.1 g/dL (06/05/16 5:45 PM) Total Protein [6.4-8.4 g/dL] 3.4 g/dL *LOW* (06/06/16 5:26 AM) 3.6 g/dL (06/05/16 5:45 PM) Albumin Lvl [3.5-5.0 g/dL] 3.0 g/dL (06/06/16 5:26 AM) 3.5 g/dL (06/05/16 5:45 PM) Globulin [2.7-4.2 g/dL] 1.1 (06/06/16 5:26 AM) 1.0 (06/05/16 5:45 PM) A/G Ratio [0.7-1.6] 8.5 mg/dL (06/06/16 5:26 AM) 8.8 mg/dL (06/05/16 5:45 PM) Calcium Lvl [8.5-10.5 mg/dL] 34 unit/L (06/06/16 5:26 AM) 37 unit/L (06/05/16 5:45 PM) ALT [0-65 unit/L] 23 unit/L (06/06/16 5:26 AM) 21 unit/L (06/05/16 5:45 PM) AST [0-37 unit/L] 83 unit/L (06/06/16 5:26 AM) 91 unit/L (06/05/16 5:45 PM) Alk Phos [39-136 unit/L] 0.3 mg/dL (06/06/16 5:26 AM) 0.3 mg/dL (06/05/16 5:45 PM) Bili Total [0.2-1.3 mg/dL] 1Result Comment: The eGFR is calculated using the [...] from the National Kidney Disease Education Program ( NKDEP) which additionally recommends that when the eGFR is used in patients with extremes of body mass index for purposes of drug dosing, the eGFR should be mul tiplied by the estimated BMI. 2Result Comment: The eGFR is calculated using the [...] from the National Kidney Disease Education Program ( NKDEP) which additionally recommends that when the eGFR is used in patients with extremes of body mass index for purposes of drug dosing, the eGFR should be mul tiplied by the estimated BMI. CARDIAC ENZYMES 1 2 3 Most recent to oldest [Reference Range]: 56 unit/L (06/05/16 5:45 PM) Total CK [12-191 unit/L] <0.5 ng/mL (06/05/16 5:45 PM) CK MB [0.5-3.6 ng/mL] <0.9 (06/05/16 5:45 PM) CK MB Index [0.0-2.5] <0.02 ng/mL (06/06/16 5:26 AM) <0.02 ng/mL (06/06/16 1:42 AM) <0.02 ng/mL (06/05/16 5:45 PM) Troponin-I [0.00-0.40 ng/mL] LIPIDS 1 2 3 Most recent to oldest [Reference Range]: 3.49 *LOW* (06/06/16 5:26 AM) CHD Risk [3.90-5.80] 164 mg/dL (06/06/16 5:26 AM) Chol [<=199 mg/dL] 138 mg/dL (06/06/16 5:26 AM) Trig [<=149 mg/dL] 47 mg/dL *LOW* (06/06/16 5:26 AM) HDL [>=61 mg/dL] 89 mg/dL (06/06/16 5:26 AM) LDL (Calculated) [<=99 mg/dL] 28 *NA* (06/06/16 5:26 AM) VLDL SPECIAL CHEMISTRY 1 2 3 Most recent to oldest [Reference Range]: 5.5 % (06/06/16 5:26 AM) Hgb A1C [<=5.6 %] URINE AND STOOL 1 2 3 Most recent to oldest [Reference Range]: Clear (06/05/16 6:26 PM) UA Turbidity [Clear] Ltyellow *NA* (06/05/16 6:26 PM) UA Color 6.0 (06/05/16 6:26 PM) UA pH [5.0-8.0] 1.013 (06/05/16 6:26 PM) UA Spec Grav [<=1.030] Negative mg/dL *NA* (06/05/16 6:26 PM) UA Glucose [Negative mg/dL] Negative (06/05/16 6:26 PM) UA Blood [Negative] Negative mg/dL *NA* (06/05/16 6:26 PM) UA Ketones [Negative mg/dL] Negative mg/dL (06/05/16 6:26 PM) UA Protein [Negative mg/dL] <=1.0 mg/dL *NA* (06/05/16 6:26 PM) UA Urobilinogen [0.1-1.0 mg/dL] Negative *NA* (06/05/16 6:26 PM) UA Bili [Negative] Moderate *ABN* (06/05/16 6:26 PM) UA Leuk Est [Negative] Negative (06/05/16 6:26 PM) UA Nitrite [Negative] 1 /HPF (06/05/16 6:26 PM) UA WBC [0-5 /HPF] 1 /HPF (06/05/16 6:26 PM) UA RBC [0-2 /HPF] Few /LPF *NA* (06/05/16 6:26 PM) UA Sq Epi [Few /LPF] 1 /LPF *HI* (06/05/16 6:26 PM) UA Renal Epi [<=0 /LPF] Few /LPF *NA* (06/05/16 6:26 PM) UA Mucus [None Seen /LPF] HEMATOLOGY 1 2 3 Most recent to oldest [Reference Range]: 5.2 K/CMM (06/06/16 5:26 AM) 5.0 K/CMM (06/05/16 5:45 PM) WBC [3.7-10.4 K/CMM] 4.76 M/CMM (06/06/16 5:26 AM) 5.14 M/CMM (06/05/16 5:45 PM) RBC [4.20-5.40 M/CMM] 13.9 g/dL (06/06/16 5:26 AM) 15.0 g/dL (06/05/16 5:45 PM) Hgb [12.0-16.0 g/dL] 40.6 % (06/06/16 5:26 AM) 44.3 % (06/05/16 5:45 PM) Hct [36.0-48.0 %] 85.4 fL (06/06/16 5:26 AM) 86.2 fL (06/05/16 5:45 PM) MCV [80.0-98.0 fL] 29.2 pg (06/06/16 5:26 AM) 29.3 pg (06/05/16 5:45 PM) MCH [27.0-31.0 pg] 34.1 g/dL (06/06/16 5:26 AM) 33.9 g/dL (06/05/16 5:45 PM) MCHC [32.0-36.0 g/dL] 14.4 % (06/06/16 5:26 AM) 14.6 % *HI* (06/05/16 5:45 PM) RDW [11.5-14.5 %] 241 K/CMM (06/06/16 5:26 AM) 273 K/CMM (06/05/16 5:45 PM) Platelet [133-450 K/CMM] 8.2 fL (06/06/16 5:26 AM) 8.5 fL (06/05/16 5:45 PM) MPV [7.4-10.4 fL] 40.6 % *LOW* (06/06/16 5:26 AM) 47.5 % (06/05/16 5:45 PM) Segs [45.0-75.0 %] 48.5 % *HI* (06/06/16 5:26 AM) 43.1 % *HI* (06/05/16 5:45 PM) Lymphocytes [20.0-40.0 %] 7.9 % (06/06/16 5:26 AM) 6.3 % (06/05/16 5:45 PM) Monocytes [2.0-12.0 %] 2.3 % (06/06/16 5:26 AM) 2.3 % (06/05/16 5:45 PM) Eosinophils [0.0-4.0 %] 0.7 % (06/06/16 5:26 AM) 0.8 % (06/05/16 5:45 PM) Basophils [0.0-1.0 %] 2.1 K/CMM (06/06/16 5:26 AM) 2.4 K/CMM (06/05/16 5:45 PM) Segs-Bands # [1.5-8.1 K/CMM] 2.5 K/CMM (06/06/16 5:26 AM) 2.2 K/CMM (06/05/16 5:45 PM) Lymphocytes # [1.0-5.5 K/CMM] 0.4 K/CMM (06/06/16 5:26 AM) 0.3 K/CMM (06/05/16 5:45 PM) Monocytes # [0.0-0.8 K/CMM] 0.1 K/CMM (06/06/16 5:26 AM) 0.1 K/CMM (06/05/16 5:45 PM) Eosinophils # [0.0-0.5 K/CMM] 12.3 seconds (06/05/16 5:45 PM) PT [12.0-14.7 seconds] 0.90 (06/05/16 5:45 PM) INR [0.85-1.17] 26.6 seconds (06/05/16 5:45 PM) PTT [22.9-35.8 seconds] Immunizations Given and Recorded Vaccine Date Status Refusal Reason pneumococcal 23-valent vaccine 06/06/16 Given Procedures Procedure Date Related Diagnosis Body Site Abdominal hysterectomy Caesarean section Cardiac catheterisation Social History Social History Type Response Substance Abuse Use: None. Alcohol Current, Type Wine, Liquor. Frequency: 1-2 times per month. Smoking Status Former smoker; Type: Cigarettes; Ready to change: No; Concerns about tobacco use in household: No; Lives with someone who smokes; Cigarette Smoking Last 365 Days No; Reg Smoking Cessation Counseling No Assessment and Plan Extracted from: Title: Discharge Summary * Author: Pranay Fiore MD Date: 06/06/16 Patient: TAMMY SAUNDERS Age: 51 years Sex: Female : 1965 Associated Diagnoses: None Author: Pranay Fiore MD Results Review General results Labs (Last four charted values) WBC 5.2(JUN 06)5.0(JUN 05) Hgb 13.9(JUN 06)15.0(JUN 05) Hct 40.6(JUN 06)44.3(JUN 05) Plt 241(JUN 06)273(JUN 05) Na 143(JUN 06)143(JUN 05) K 3.9(JUN 06)4.2(JUN 05) CO2 L 23(JUN 06)25(JUN 05) Cl H 110(JUN 06)107(JUN 05) Cr 0.65(JUN 06)0.74(JUN 05) BUN 18(JUN 06)12(JUN 05) Glucose Random 90(JUN 06)H 131(JUN 05) Ca 8.5(JUN 06)8.8(JUN 05) PT 12.3(JUN 05) INR 0.90(JUN 05) PTT 26.6(JUN 05) Troponin <0.02(JUN 06)<0.02(JUN 06)<0.02(JUN 05) CK MB <0.5(JUN 05) Total CK 56(JUN 05) Final discharge diagnoses: 1. 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 Dizziness/presyncope resolved Consultants: Neurology Discharge Information Disposition: Home Medications: See med reconciliation form Condition: Stable Physical Examination VS/Measurements Measurements from flowsheet : Measurements 06/06/2016 02:18 Heparin Dosing Weight (kg) 61.41 06/06/2016 02:16 Height 154.94 cm Height Collection Method Stated Weight 81.818 kg Dosing Weight Difference Percent 28.572 % Dosing Wt Entered is >10% of Previous Wt Confirmed Dosing Weight Collection Method Measured Body Surface Area 1.8765 m2 Body Mass Index 34.08 m2 06/05/2016 17:04 Heparin Dosing Weight (kg) 63.64 06/05/2016 17:01 Height 172.72 cm Height Collection Method Stated Weight 63.636 kg Dosing Weight Collection Method Estimated Body Surface Area 1.7473 m2 Body Mass Index 21.33 m2 , Vital Signs (last 24 hrs) Last Charted Temp Oral98.0 DegF (JUN 06 15:46) Heart Rate Xwgktvddyd23 bpm (JUN 06 15:46) Resp Rate 16 BRMIN (JUN 06 15:46) SBP92 mmHg (JUN 06 15:46) DBPL 40mmHg (JUN 06 15:46) ZcX317 % (JUN 06 15:46) Fywjqb54.818 kg (JUN 06 02:16) Yrxikh687.94 cm (JUN 06 02:16) BMI34.08 (JUN 06 02:16) Intake and Output I/O Intake OutputBalance 06/06/20167a-3p 10.00 0.00 10.00 3p-11p 0.00 0.00 0.00As of 19:24 11p-7a 0.00 0.00 0.00 Totals 10.00 0.00 10.00 06/05/20167a-3p 0.00 0.00 0.00 3p-11p 0.00 0.00 0.00 11p-7a 0.00 0.00 0.00 Totals 0.00 0.00 0.00 06/04/20167a-3p 0.00 0.00 0.00 3p-11p 0.00 0.00 0.00 11p-7a 0.00 0.00 0.00 Totals 0.00 0.00 0.00 General: Alert and oriented, No acute distress. Eye: Pupils are equal, round and reactive to light, Extraocular movements are intact, Normal conjunctiva. HENT: Normocephalic, Oral mucosa is moist. Neck: Supple, Non-tender, No lymphadenopathy. Respiratory: Lungs are clear to auscultation, Respirations are non-labored, Breath sounds are equal. Cardiovascular: Normal rate, Regular rhythm, No murmur. Gastrointestinal: Soft, Non-tender, Non-distended, Normal bowel sounds. Genitourinary: No costovertebral angle tenderness. Lymphatics: No lymphadenopathy neck, axilla, groin. Musculoskeletal Normal range of motion. Normal strength. No swelling. Integumentary: Warm, Dry. Neurologic: Alert, Oriented, No focal deficits, Cranial Nerves II-XII are grossly intact. Psychiatric: Cooperative, Appropriate mood & affect. Hospital Course 51-year-old female who was admitted on 06/05/2015 with concerns of TIA symptoms dizziness and presyncope. Patient was admitted under observation and was neurology was consulted and feels like this is a vertebrobasilar insufficiency reaction from atenolol include the patient to be discharged home. Patient had a carotid Doppler which was negative. 2D echo was performed and it was negative. Patient was started on antiplatelet therapy by neurology and a statin and agreed to discharge the patient home. Patient was stable, vital signs are stable labs reviewed and stable. Patient was discharged home per neurology recommendations. Patient is to discuss atenolol with her primary care physician and was discontinued from the med rec.CT head negative, 2D echo showed some diastolic dysfunction, carotid ultrasound negative. Patient cleared to be discharged home by neurology. Discharge Plan Follow-up with your primary care physician in 1 week In the event of any worsening symptoms patient advised to come back to the ED for further evaluation Discharge summary took greater than 35 minutes Addendum Patient also reports chronic hypotension at home and asymptomatic. She reports that her by [facility], blood pressure is always in the mid 90s at home and never experiences any issues. Pranay Mejias MD on 06/06/2016 19:30
--- OUTSIDE RECORDS SUMMARY | 2018-04-29 06:01 | XMS REPORT ---
Author Author [facility] Address Unknown Phone Unavailable Care Team Providers Care [facility] Staff Nurse Name Role Phone ELENA OVERTON Unavailable Unavailable Problems This patient has no known problems. Allergies, Adverse Reactions, Alerts This patient has no known allergies or adverse reactions. Medications This patient has no known medications. Results Test Description Test Time Test Comments Text Results Atomic Results Result Comments CHEST 2 VIEWS 2018-04-23 16:25:00 [place] [address] Patient Name: TAMMY GONZÁLES MR #: [id number] : 1965 Age/Sex: 53/F Req #: [id number] Adm Physician: Ordered by: ELENA OVERTON DPM Report #: [id number] Location: OR Room/Bed: Procedure: [id number] DX/CHEST 2 VIEWS Exam Date: 04/23/18 Exam Time: 1540 REPORT STATUS: Signed EXAMINATION: CHEST 2 VIEWS INDICATION: PRE ADMIT [id number] COMPARISON: None FINDINGS: PA and lateral views TUBES and LINES: None. LUNGS: Lungs are well inflated. Lungs are clear. There is no evidence of pneumonia or pulmonary edema. PLEURA: No pleural effusion or pneumothorax. HEART AND MEDIASTINUM: The cardiomediastinal silhouette is unremarkable. BONES AND SOFT TISSUES: No acute osseous lesion. Soft tissues are unremarkable. UPPER ABDOMEN: No free air under the diaphragm. IMPRESSION: No acute thoracic abnormality. Signed by: Dr. Guy Rolon MD on 04/23/2018 4:26 PM Dictated By: GUY ROLON MD 25 Transcribed By: THEODORE on 04/23/181625 COPY TO: ELENA OVERTON DPM
--- NOTE | 2018-04-29 09:29 | Operative Report ---
DATE OF PROCEDURE: April 29, 2018 PREOPERATIVE DIAGNOSES 1. Painful hallux valgus deformity, right foot. 2. Painful contracted hammertoe, 4th digit, right foot. 3. Painful contracted hammertoe, 5th digit, right foot. POSTOPERATIVE DIAGNOSES 1. Painful hallux valgus deformity, right foot. 2. Painful contracted hammertoe, 4th digit, right foot. 3. Painful contracted hammertoe, 5th digit, right foot. OPERATIVE PROCEDURES 1. Jeffery bunionectomy with screw fixation, right foot. 2. Arthroplasty, 4th digit with Oumar wire fixation of 4th digit, right foot. 3. Arthroplasty, 6th digit with Oumar wire fixation of 5th digit, right foot. 4. Intraoperative use of fluoroscopy. 5. Trigger point shot of cortisone. 6. Application of posterior splint. ANESTHESIA: General. HEMOSTASIS: Pneumatic thigh tourniquet at 350 mmHg. PROCEDURE IN DETAIL: Patient was taken into the operating room and placed on the operating room table in the supine position. Following induction of general anesthesia by the anesthesiologist, Webril wraps were placed on the patient's right thigh followed by application of right thigh tourniquet. The right lower extremity was then prepped and draped in the usual aseptic manner. The following procedure was then performed. PROCEDURE #1: Jeffery bunionectomy with screw fixation, right foot. Attention was directed to the dorsomedial aspect of the 1st MPJ where a 6 cm linear incision was performed. The incision was deepened via sharp and blunt dissection being careful to retract vital structures and ligating any superficial vessels as necessary. Once the level of the capsule was reached, a longitudinal capsulotomy was then performed exposing a dorsal exostosis and medial exostosis of the 1st metatarsal head. Via the use of an oscillating saw and rotating bur, exostoses were excised and all rough and bony edges were rasped smooth. A V-osteotomy was then performed from medial to lateral. Capital fragment was then transitioned laterally. Upon adequate surgical and anatomical reduction utilizing proper AO technique, a 2 x 16 mm cortical screw in conjunction with a buried 0.045 K-wire was used to achieve stability at the osteotomy site. All redundant bone medially was excised via the use of an oscillating saw and rotating bur. PROCEDURES #3 AND #4: Arthroplasty, 4th and 5th digits with K-wire fixation of the 4th. Attention was then directed to the dorsal aspect of the above-mentioned toes overlying the proximal interphalangeal joint where a 3 cm linear incision was performed. The incision was deepened down to the joint capsule. Transverse capsulotomy was then performed exposing the head of the proximal phalanxes. Via the use of an oscillating saw, the head of the proximal phalanxes were excised from the operation site in toto. All rough and bony edges were rasped smooth. The 4th toe was still noted to be contracted. So, a 0.045 K-wire was introduced up the metatarsophalangeal joint to achieve proper anatomical reduction. PROCEDURE #4: Intraoperative use of fluoroscopy was then used to make sure proper alignment and fixation was achieved. Closure was then obtained utilizing 3-0 Vicryl, 4-0 Vicryl and 4-0 nylon for capsule, subcutaneous tissue and skin respectively. PROCEDURE #5: A trigger point shot of cortisone was then given to the 1st and 4th interspace of the right foot. Then approximately 12-15 mL of 0.5% plain Marcaine with 0.5 cc of 1% Xylocaine plain were used to achieve local anesthesia to the above-mentioned surgical area. Sterile dressing was applied. Upon release of the thigh tourniquet, blood hyperemia was noted to all digits of the patient's right foot. PROCEDURE #6: A properly placed posterior splint was then applied keeping the foot at 90 degrees with respect to the leg to try to prevent any type of postop complications. Patient was then transferred from the OR to the recovery room with vital signs stable and neurovascular status intact. No intraoperative complications were encountered. Blood loss from the surgery was minimal. Patient to remain nonweightbearing with the aid of crutches. Keep her foot elevated. Is to apply an ice pack to the ankle joint area. Job#: [id number] THOMAS
--- NOTE | 2018-04-29 09:32 | Diagnostic Imaging Report ---
PROCEDURE:X-RAY RIGHT FOOT, TWO VIEWS COMPARISON:None. INDICATIONS:POST RIGHT FOOT SURGERY FINDINGS: See conclusion. CONCLUSION: AP and lateral post-operative views of the right foot with overlying bandage material show post-surgical changes of a bunionectomy and arthroplasty with wire and screw through the distal first metatarsal and a K wire through the fourth phalangeal segments of the toe. There is a small chip fracture of the lateral base of the proximal phalanx of the great toe. There is surrounding soft-tissue swelling consistent with recent surgery. Please refer to performing physician's notes for full details of this procedure. Landen Burks D.O. Dictated by: Landen Burks D.O. on 04/29/2018 at 9:42 Electronically approved by: Landen Burks D.O. on 04/29/2018 at 9:42
[2018-04-29 09:35] VITALS: BP 119/61
== END | disposition home or self-care (01) ==
LOC: OR 05:57
PROVIDERS: ATTEND Podiatrist Foot Surgery
DX: M20.12 Hallux valgus (acquired), left foot (principal); M20.41 Other hammer toe(s) (acquired), right foot; J45.909 Unspecified asthma, uncomplicated; Z88.6 Allergy status to analgesic agent; Z01.810 Encounter for preprocedural cardiovascular examination; Z01.812 Encounter for preprocedural laboratory examination; Z01.818 Encounter for other preprocedural examination
CPT/HCPCS: 28285 ×2; 28296; 36415; 71046; 73620; 80048; 85025; 93005; C1713; J0690; J0720; J1100; J1885; J2001 ×2; J2250; J2270; J2405; J2704